=== PATIENT | female | born 1975 | race Caucasian/White ===

== ENCOUNTER 2017-08-09 10:26 | Outpatient (CLI) | payer BC | END 2017-08-09 19:23 | disposition home or self-care (01) | LOC: SRD 10:26 | PROVIDERS: ATTEND Family Medicine | DX: Z12.31 Encounter for screening mammogram for malignant neoplasm of breast (principal) | CPT/HCPCS: 77067 ==

== ENCOUNTER 2018-08-23 12:38 | Outpatient (CLI) | payer BC | END 2018-08-23 21:15 | disposition home or self-care (01) | LOC: SMA 12:38 | PROVIDERS: ATTEND Family Medicine | DX: Z12.31 Encounter for screening mammogram for malignant neoplasm of breast (principal) | CPT/HCPCS: 77067 ==

== ENCOUNTER 2020-08-28 09:59 | Outpatient (CLI) | payer BC | END 2020-08-28 19:30 | disposition home or self-care (01) | LOC: SRD 09:59 | PROVIDERS: ATTEND Family Medicine | DX: Z12.31 Encounter for screening mammogram for malignant neoplasm of breast (principal) | CPT/HCPCS: 77067 ==

== ENCOUNTER 2021-09-03 08:46 | Outpatient (CLI) | payer BC | END 2021-09-03 20:11 | disposition home or self-care (01) | LOC: SMA 08:46 | PROVIDERS: ATTEND Family Medicine | DX: Z12.31 Encounter for screening mammogram for malignant neoplasm of breast (principal) | CPT/HCPCS: 77067 ==

== ENCOUNTER 2022-05-20 11:18 | Outpatient (CLI) | payer BC | END 2022-05-20 20:21 | disposition home or self-care (01) | LOC: SLB 11:18 → SRD 20:21 | DX: I20.9 Angina pectoris, unspecified (principal) | CPT/HCPCS: 71046-TC ==

== ENCOUNTER 2022-12-10 15:40 | Outpatient (CLI) | payer BC | END 2022-12-10 18:59 | disposition home or self-care (01) | LOC: SMA 15:40 | PROVIDERS: ATTEND Physician Assistant Medical | DX: Z12.31 Encounter for screening mammogram for malignant neoplasm of breast (principal) | CPT/HCPCS: 77067 ==

== ENCOUNTER 2023-12-05 10:36 | Outpatient (CLI) | payer BC | END 2023-12-05 20:29 | disposition home or self-care (01) | LOC: SUS 10:36 | PROVIDERS: ATTEND Obstetrics & Gynecology | DX: N85.9 Noninflammatory disorder of uterus, unspecified (principal); R10.2 Pelvic and perineal pain; Z86.018 Personal history of other benign neoplasm | CPT/HCPCS: 76830; 76857 ==